=== PATIENT | male | born 1990 | race Caucasian/White ===

== ENCOUNTER → 2017-07-27 | Outpatient (CLI) | payer OTHER ==
[~2017-07-27] MED LIST: SINCALIDE INJ 1.5 MCG in SODIUM CHLORIDE 0.9% 100ML 100 ML IV ONE
--- NOTE | 2017-07-27 10:24 | DIAGNOSTIC IMAGING REPORT ---
NUCLEAR MEDICINE HEPATOBILIARY SCAN WITH GALLBLADDER EJECTION FRACTION CLINICAL HISTORY: Right upper quadrant abdominal pain. COMPARISON: None TECHNIQUE: 5.5 mCi of technetium 99m Choletec IV was injected at 8:00 AM on July 27, 2017. Immediately following injection, imaging of the abdomen was carried out for 60 minutes in the anterior projection. At this time, 1.5 mcg of Sincalide was injected IV as per protocol. Imaging was performed for an additional 45 minutes to estimate a gallbladder ejection fraction. FINDINGS: Hepatic uptake of radiotracer is prompt and homogeneous. Radiotracer within the gallbladder and common bile duct is noted at 10 minutes. Small bowel activity is first noted at 30 minutes. Following injection of sincalide, there is normal gallbladder emptying with an ejection fraction of 96%. Normal is greater than 30-35%. IMPRESSION: 1. Normal hepatobiliary scan. No evidence of acute or chronic cholecystitis. 2. Normal gallbladder ejection fraction of 96%. Electronically signed by: Ernie Fowler M.D. 07/27/2017 10:23 AM Dictated Date/Time: 07/27/2017 10:19 AM
== END | disposition home or self-care (01) ==
LOC: C.NUCL 07:37
PROVIDERS: ATTEND Internal Medicine
DX: R10.11 Right upper quadrant pain (principal)

== ENCOUNTER 2018-02-21 16:16 | Emergency (ER) | payer OTHER ==
[~2018-02-21] VITALS: Ht 185.4 cm; Wt 83.1 kg
[2018-02-21 16:18] VITALS: TEMP 37.3; Ht 185.4 cm; Wt 83.1 kg
[2018-02-21] MEDS ORDERED: LIDOCAINE 1% BUFFERED INJ 20 ML VIAL INFIL ONE (16:30)
--- NOTE | 2018-02-21 16:38 | EMERGENCY ROOM VISIT NOTE ---
ED Visit Note First contact with patient: 16:27 CHIEF COMPLAINT: Hand laceration HISTORY OF PRESENT ILLNESS: This 27-year-old male patient presents to the emergency department by private vehicle after cutting the right thumb and index finger about an hour ago. The patient states that he was handling some tubing in the lab when the glass broke and sliced his thumb and index finger. The bleeding has stopped. Denies weakness or numbness of the hand or fingers. The patient rates the pain as sharp and 1/10. The patient denies any other injuries. The patient's Tetanus shot is up to date. He is right-hand dominant. REVIEW OF SYSTEMS: A 6 system review of systems was completed with positives and pertinent negatives listed in the HPI. ALLERGIES: Reviewed in chart, see below. MEDICATIONS: No current medications. PMH: No significant past medical or surgical history. He is up-to-date on immunizations. SOCIAL HISTORY: Lives home. He is a [employer] student. He is a current smoker. PHYSICAL EXAM: Vital Signs: Reviewed Nurse's notes, vital signs stable. GENERAL : Pleasant and cooperative, in no acute distress, well-developed, well- nourished. SKIN: There is a 1 cm long superficial abrasion fingerpad of the right pointer finger and a 0.5 cm superficial abrasion on the finger pad of the right thumb. The edges do not gape apart with traction. There is no foreign material in the wound and it looks clean. Normal strength and movement of the fingers and wrist. Capillary refill less than 2 seconds. Normal sensation to light and sharp touch. EMERGENCY DEPARTMENT COURSE: I examined the patient. Evaluation of the wounds notes them to be quite superficial, no wound closure required. Wound cleansing and Band-Aids applied by nursing per orders. Patient was educated regarding wound care, follow-up, and return precautions, he verbalized understanding. Patient was discharged home in stable condition and ambulatory. Allergies Coded Allergies: Penicillins (Verified Allergy, Unknown, ., 07/27/17) Vital Signs Date Time Temp Pulse Resp B/P (MAP) Pulse Ox O2 Delivery O2 Flow Rate FiO2 02/21/18 16:47 81 16 148/80 99 02/21/18 16:46 81 16 148/80 99 Room Air 02/21/18 16:18 37.3 82 20 134/80 98 Room Air Departure Information Impression Primary Impression: Abrasion of right hand and fingers Dispostion Home / Self-Care Condition GOOD Referrals [facility] (PCP) Patient Instructions ED Abrasion, My [facility] Additional Instructions You have been evaluated and treated in the emergency department today for your right finger abrasions. Keep wounds clean and dry. Do not submerge the wound under water for the next 5 days until the wounds have fully healed. Use an antibiotic ointment for 3-4 days, then let wound dry. Keep covered with a Band-Aid. As with all abrasions and lacerations, there may be temporary or permanent nerve damage or scarring. Please seek immediate medical attention for any signs of infection (increasing redness, severe swelling, increased pain, pus drainage, streaking up the hand/ arm, fever/chills), or for any other concerns. Problem Qualifiers Primary Impression: Abrasion of right hand and fingers Encounter type: initial encounter Qualified Codes: S60.511A - Abrasion of right hand, initial encounter; S60.419A - Abrasion of unspecified finger, initial encounter
[2018-02-21 16:47] VITALS: BP 148/80; PULSE 81; O2SAT 99
== END 2018-02-21 16:48 | disposition home or self-care (01) ==
LOC: C.EDB 16:16 → C.EDD 16:48
DX: S60.311A Abrasion of right thumb, initial encounter (principal); S60.410A Abrasion of right index finger, initial encounter; W25.XXXA Contact with sharp glass, initial encounter; Y92.89 Other specified places as the place of occurrence of the external cause; F17.210 Nicotine dependence, cigarettes, uncomplicated